=== PATIENT | male | born 1965 | race Caucasian/White ===

== ENCOUNTER 2017-12-07 10:36 | Emergency (ER) | payer SELFPAY ==
[~2017-12-07] VITALS: Ht 170.2 cm; Wt 78.0 kg
[~2017-12-07 10:36] MED LIST: NAPR550 PO; PENI500T PO; TRAM50 PO; Z.0.NO CURRENT MEDS
[2017-12-07 10:38] VITALS: BP 158/87; PULSE 115; RESP 16; TEMP 98.3; O2SAT 99
[2017-12-07] MEDS ORDERED: TRAM50 PO (10:54)
[2017-12-07] MEDS ORDERED: MEDI220T PO (10:54)
--- NOTE | 2017-12-07 10:55 | PD ---
HPI Chief Complaint: Pain: Acute or Chronic Time Seen by Provider: 10:42 Travel History International Travel<30 days: No Contact w/Intl Traveler<30days: No Traveled to known affect area: No History of Present Illness HPI Patient 52-year-old male presents emergency department with atraumatic left knee pain. Patient states he has had some problems on and off of his left knee , mild swelling. He denies any history of injury, he states his knee was quite more significantly swollen yesterday but after keeping it elevated last night and states is a little bit better. He states his had similar problems with his knee and his low back in the past. States symptoms are mild, associated signs and symptoms as above, context as above, symptoms for the past few days per [facility] Past Medical History Genitourinary: Yes (LEFT KIDNEY STONE, [place]. WITH LIPOTRIPSY) Past Surgical History Other Surgery: Yes (LYTHOTRYPSY) Social History Alcohol Use: Yes (DAILY) Tobacco Use: Yes (1/2 PACK PER DAY) Substance Use: No Allergies-Medications (Allergen,Severity, Reaction): Coded Allergies: No Known Allergies (Verified Adverse Reaction, Unknown, 12/07/17) Reported Meds & Prescriptions Reported Meds & Active Scripts Active Ultram (Tramadol HCl) 50 Mg Tab 50 Mg PO Q6H PRN Naproxen Sodium 220 Mg Tab 220 Mg PO BID PRN 20 Days Ultram (Tramadol HCl) 50 Mg Tab 1 Tab PO Q6HPRN FOR PAIN Pen Vk (Penicillin V Potassium) 500 Mg Tab 500 Mg PO QID Anaprox Ds (Naproxen Sodium) 550 Mg Tab 1 Tab PO BIDPRN Reported No Current Meds (Miscellaneous Medication) [facility] [place] Review of Systems Except as stated in HPI: all other systems reviewed are Neg Physical Exam Narrative GENERAL: Well-nourished, well-developed patient. SKIN: Focused skin assessment warm/dry. HEAD: Normocephalic. EYES: No scleral icterus. No injection or drainage. NECK: Supple, trachea midline. No JVD or lymphadenopathy. CARDIOVASCULAR: Regular rate and rhythm without murmurs, gallops, or rubs. RESPIRATORY: Breath sounds equal bilaterally. No accessory muscle use. GASTROINTESTINAL: Abdomen soft, non-tender, nondistended. MUSCULOSKELETAL: No gross deformity of the left knee, there is a moderate joint effusion, the knee is euthermic to touch with his other knee, patient has some pain with range of motion, no joint laxity, no bony tenderness, pulse motor and sensory intact distally, no tenderness of the ankle or hip. He is able to walk albeit antalgically. BACK: Nontender without obvious deformity. No CVA tenderness. Data Data Last Documented VS Vital Signs Date Time Temp Pulse Resp B/P (MAP) Pulse Ox O2 Delivery O2 Flow Rate FiO2 12/07/17 10:38 98.3 115 16 158/87 (110) 99 Orders Orders Tramadol (Ultram) (12/07/17 11:00) Ed Discharge Order (12/07/17 10:55) MDM Medical Decision Making Medical Screen Exam Complete: Yes Emergency Medical Condition: Yes Differential Diagnosis Knee effusion, arthritis, infectious arthritis unlikely. Narrative Course Patient room to the emergency department, he appears well in no obvious distress. Certainly does have knee effusion but I do not see indication for arthrocentesis at this time. Discussed with him symptomatic management including rest ice compression elevation follow-up with orthopedic surgeon in the [facility]. Discussed smoking cessation. He is stable for discharge Diagnosis Primary Impression: Joint effusion Referrals: Xavier Masters MD [facility] Med/Other Pt SpecificInfo: Prescription(s) given Scripts Tramadol (Ultram) 50 Mg Tab 50 MG PO Q6H Y for PAIN, #12 TAB 0 Refills Prov: John Yusuf MD 12/07/17 Naproxen Sodium (Naproxen Sodium) 220 Mg Tab 220 MG PO BID Y for Pain Management for 20 Days, #40 TAB 0 Refills Prov: John Yusuf MD 12/07/17 Disposition: 01 DISCHARGE HOME Condition: Stable John Yusuf MD December 07, 2017 10:55
[2017-12-07] MEDS ORDERED: traMADol HCL 50 MG TAB PO ONE (11:00)
== END 2017-12-07 11:17 | disposition home or self-care (01) ==
LOC: NEPE 10:36
DX: M25.462 Effusion, left knee (principal); F17.200 Nicotine dependence, unspecified, uncomplicated
CPT/HCPCS: 99283